=== PATIENT | male | born 1985 | race Two or more races ===

== ENCOUNTER 2017-02-23 20:15 | Inpatient (IN) | payer OTHER ==
[~2017-02-23] VITALS: Ht 162.6 cm; Wt 77.3 kg
[2017-02-23 21:15] LABS: ADD MIUA? YES; BILIRUBIN NEGATIVE; BLOOD LARGE; COLOR YELLOW ((YELLOW)); GLUCOSE (STRIP) NEGATIVE; KETONES NEGATIVE; LEUKOCYTES NEGATIVE; NITRITE NEGATIVE; PROTEIN (STRIP) >=500; SPECIFIC GRAVITY 1.012 (1.000-1.030); UROBILINOGEN 0.2 MG/DL (0.2-1.0)
[2017-02-23 21:19] LABS: HEMATOCRIT 28.9 % (38.0-50.0); MCH 28.2 PG (29.0-34.0); MCHC 33.2 G/DL (30.0-36.0); MEAN PLAT.VOLUME 9.9 uM^3 (9.0-12.4); PLATELET COUNT 112 K/uL (156-360); RBC DIS.WIDTH-CV 14.6 % (11.8-14.6); RBC DIS.WIDTH-SD 45.4 % (39-53); WHITE BLOOD COUNT 7.2 K/uL (4.1-10.2)
[2017-02-23 21:22] LABS: BACTERIA RARE /HPF; EPITHELIAL CELLS RARE /HPF; MUCUS TRACE /LPF; RED BLOOD CELLS 15-20 /HPF (0-5); UCUL ADDED? NO; WHITE BLOOD CELLS 0-5 /HPF (0-5)
[2017-02-23 21:31] LABS: CHLORIDE 107 mEq/L (99-109); POTASSIUM 4.5 mEq/L (3.7-5.4); SODIUM 138 mEq/L (136-147)
[2017-02-23 21:33] LABS: GLUCOSE 102 mg/dL (70-99)
[2017-02-23 21:34] LABS: ANION GAP 20 MEQ/L (2-14)
[2017-02-23 21:37] LABS: GFR ESTIMATE (CALCULATED) 3 mL/min/
[2017-02-23 21:40] LABS: TROP-I INTERPRETATION NEGATIVE; TROPONIN-I 0.25 ng/mL (0.0-0.30)
[2017-02-23 21:54] LABS: UREA NITROGEN (BUN) 137 mg/dL (9-23)
[2017-02-23] MEDS ORDERED: FUROSEMIDE20 MG PO (23:37)
[2017-02-23] MEDS ORDERED: PROAIR HFA8.5 GM IH (23:37)
[2017-02-23] MEDS ORDERED: NIFEDIPINE ER30 MG PO (23:38)
[2017-02-23] MEDS ORDERED: SYMBICORT60 INHALA1 IH (23:40)
[2017-02-24 00:35] VITALS: BP 190/120
[2017-02-24 02:51] LABS: C-REACTIVE PROTEIN 18.4 MG/L (0-10); SAMPLE HEMOLYSIS CHECK 0; SAMPLE ICTERIC CHECK 0; SAMPLE LIPEMIA CHECK 0
[2017-02-24 03:31] LABS: UR CREATININE CONCENTRATION 128.8 MG/DL
[2017-02-24 04:25] VITALS: BP 150/83
[2017-02-24 05:35] LABS: HEMATOCRIT 23.2 % (38.0-50.0); MCH 29.4 PG (29.0-34.0); MCHC 33.6 G/DL (30.0-36.0); MCV 87.5 FL (86-99); MEAN PLAT.VOLUME 11.7 uM^3 (9.0-12.4); PLATELET COUNT 79 K/uL (156-360); RBC DIS.WIDTH-CV 14.6 % (11.8-14.6); RBC DIS.WIDTH-SD 46.8 % (39-53); WHITE BLOOD COUNT 6.2 K/uL (4.1-10.2)
[2017-02-24 05:39] LABS: RED BLOOD COUNT 2.65 M/uL (4.00-5.50)
[2017-02-24 06:23] LABS: ANION GAP 20 MEQ/L (2-14); CHLORIDE 106 MEQ/L (99-109); GFR ESTIMATE (CALCULATED) 3 mL/min/; GLUCOSE 100 mg/dL (70-99); MAGNESIUM 2.7 mg/dl (1.3-2.7); POTASSIUM 4.4 MEQ/L (3.7-5.4); SAMPLE HEMOLYSIS CHECK 0; SAMPLE ICTERIC CHECK 0; SAMPLE LIPEMIA CHECK 0; SODIUM 138 MEQ/L (136-147); UREA NITROGEN (BUN) 122 mg/dL (9-23)
[2017-02-24 07:15] LABS: ERTH.SED.RATE 5 MM/HR (0-15)
[2017-02-24 07:21] VITALS: BP 133/91
[2017-02-24 07:52] LABS: INTACT PARATHYROID HORMONE 611 pg/mL (10-69)
[2017-02-24 11:17] LABS: HIV INDEX 0.11; HIV-1/2 AB/AG COMBO Nonreactive; HPCA INDEX 0.09
[2017-02-24 12:19] LABS: FERRITIN 336 NG/ML (22-322)
[2017-02-24 12:26] LABS: HEMATOCRIT 23.9 % (38.0-50.0); MCV 86.9 FL (86-99)
[2017-02-24 12:55] VITALS: BP 156/92
[2017-02-24 13:19] LABS: C3 COMPLEMENT 153 MG/DL (58-170); C4 COMPLEMENT 42 MG/DL (10-40)
[2017-02-24 13:19] LABS: IRON 63 MCG/DL (35-150)
[2017-02-24 16:30] VITALS: BP 140/78
[2017-02-24 20:48] VITALS: BP 148/85
[2017-02-25 00:19] VITALS: BP 127/65
[2017-02-25 02:43] VITALS: BP 131/78
[2017-02-25 05:03] LABS: MCH 29.4 PG (29.0-34.0); MCHC 33.9 G/DL (30.0-36.0); MCV 86.8 FL (86-99); MEAN PLAT.VOLUME 11.3 uM^3 (9.0-12.4); PLATELET COUNT 96 K/uL (156-360); RBC DIS.WIDTH-CV 14.5 % (11.8-14.6); RBC DIS.WIDTH-SD 46.2 % (39-53); RED BLOOD COUNT 2.65 M/uL (4.00-5.50); WHITE BLOOD COUNT 4.6 K/uL (4.1-10.2)
[2017-02-25 05:14] LABS: INTER. NORMALIZED RATIO 1.1; PROTHROMBIN TIME 12.6 SEC (10.2-12.9)
[2017-02-25 05:16] LABS: PTT 28.9 SEC (25-37)
[2017-02-25 05:40] LABS: GLUCOSE 110 mg/dL (70-99)
[2017-02-25 05:50] LABS: ANION GAP 17 MEQ/L (2-14); CHLORIDE 109 MEQ/L (99-109); GFR ESTIMATE (CALCULATED) 3 mL/min/; POTASSIUM 4.5 MEQ/L (3.7-5.4); SAMPLE HEMOLYSIS CHECK 0; SAMPLE ICTERIC CHECK 0; SAMPLE LIPEMIA CHECK 0; SODIUM 141 MEQ/L (136-147)
[2017-02-25 05:51] LABS: UREA NITROGEN (BUN) 133 mg/dL (9-23)
[2017-02-25 06:24] LABS: POINT-OF-CARE METER ID UU14314088
[2017-02-25 08:14] VITALS: BP 154/88
[2017-02-25 12:00] VITALS: BP 140/78
[2017-02-25 16:00] VITALS: BP 142/82
[2017-02-25 19:39] VITALS: BP 139/82
[2017-02-26 00:26] VITALS: BP 137/79
[2017-02-26 02:57] VITALS: BP 134/77
[2017-02-26 04:40] LABS: HEMATOCRIT 22.8 % (38.0-50.0); MCH 28.7 PG (29.0-34.0); MCHC 33.3 G/DL (30.0-36.0); MEAN PLAT.VOLUME 11.4 uM^3 (9.0-12.4); PLATELET COUNT 108 K/uL (156-360); RBC DIS.WIDTH-CV 14.4 % (11.8-14.6); RBC DIS.WIDTH-SD 45.2 % (39-53); RED BLOOD COUNT 2.65 M/uL (4.00-5.50); WHITE BLOOD COUNT 4.9 K/uL (4.1-10.2)
[2017-02-26 04:52] LABS: CHLORIDE 110 mEq/L (99-109); SODIUM 141 mEq/L (136-147)
[2017-02-26 04:54] LABS: CHLORIDE 111 mEq/L (99-109); GLUCOSE 107 mg/dL (70-99); SODIUM 142 mEq/L (136-147)
[2017-02-26 04:55] LABS: ANION GAP 17 MEQ/L (2-14)
[2017-02-26 04:56] LABS: GLUCOSE 108 mg/dL (70-99)
[2017-02-26 04:57] LABS: ANION GAP 16 MEQ/L (2-14)
[2017-02-26 05:00] LABS: GFR ESTIMATE (CALCULATED) 3 mL/min/
[2017-02-26 05:04] LABS: UREA NITROGEN (BUN) 140 mg/dL (9-23)
[2017-02-26 05:06] LABS: UREA NITROGEN (BUN) 141 mg/dL (9-23)
[2017-02-26 05:11] LABS: GFR ESTIMATE (CALCULATED) 3 mL/min/
[2017-02-26 07:55] VITALS: BP 157/91
[2017-02-26 11:45] VITALS: BP 155/91
[2017-02-27 13:42] LABS: GLOMERULAR BASEMENT MEMB ABY+ <1.0 AI (<1.0)
[2017-02-27 21:44] LABS: Neutrophil Cytoplasmic Aby Negative (Negative)
== END 2017-02-26 14:36 | disposition left against medical advice (07) | DRG 683 ==
LOC: EME 20:15 → EDOF 22:42 → 4EAST 22:42 → ENRESERV 22:48 → 4EAST 23:55
PROVIDERS: Emergency Medicine; Hospitalist; Internal Medicine; Internal Medicine Nephrology
DX: N17.9 Acute kidney failure, unspecified (principal); N18.6 End stage renal disease; I12.0 Hypertensive chronic kidney disease with stage 5 chronic kidney disease or end stage renal disease; E87.70 Fluid overload, unspecified; E87.2 Acidosis; D64.9 Anemia, unspecified; J45.909 Unspecified asthma, uncomplicated; N50.89 Other specified disorders of the male genital organs; R53.1 Weakness
CPT/HCPCS: 74176; 76770; 80048; 80048 91; 80069; 81003; 82043; 82272; 82306; 82330; 82570; 82575; 82728; 82948; 83520 90; 83540; 83735; 83880; 83930; 83935; 83970; 84156; 84300; 84466; 84484; 85014; 85018; 85027; 85610; 85651; 85730; 86021 90; 86063; 86140; 86160; 86235; 86703; 86803; 87086; 89190; 94640; 94640 76; 99281; 99285; J1644; J1940

== ENCOUNTER 2017-04-29 11:28 | Day surgery (SDC) | payer OTHER ==
[~2017-04-29] VITALS: Ht 165.1 cm; Wt 68.0 kg
[~2017-04-29 11:28] MED LIST: FUROSEMIDE20 MG PO; NIFEDIPINE ER30 MG PO; NORMODYNE,TRAN200 MG PO; PROAIR HFA8.5 GM IH; RENVELA800 MG PO; SYMBICORT60 INHALA1 IH
[2017-04-29 12:06] VITALS: BP 137/83
[2017-04-29 12:21] LABS: HEMATOCRIT 30.4 % (38.0-50.0); MCH 28.8 PG (29.0-34.0); MCHC 33.6 G/DL (30.0-36.0); MCV 85.9 FL (86-99); MEAN PLAT.VOLUME 10.3 uM^3 (9.0-12.4); PLATELET COUNT 171 K/uL (156-360); RBC DIS.WIDTH-CV 14.2 % (11.8-14.6); RBC DIS.WIDTH-SD 44.6 % (39-53); RED BLOOD COUNT 3.54 M/uL (4.00-5.50); WHITE BLOOD COUNT 6.1 K/uL (4.1-10.2)
[2017-04-29 12:35] LABS: ANION GAP 14 MEQ/L (2-14); CHLORIDE 99 MEQ/L (99-109); POTASSIUM 4.1 MEQ/L (3.7-5.4); SAMPLE HEMOLYSIS CHECK 0; SAMPLE ICTERIC CHECK 0; SAMPLE LIPEMIA CHECK 0; SODIUM 142 MEQ/L (136-147)
[2017-04-29 12:41] LABS: GFR ESTIMATE (CALCULATED) 8 mL/min/ (58.99-99999); GLUCOSE 85 mg/dL (70-99); UREA NITROGEN (BUN) 64 mg/dL (9-23)
[2017-04-29 13:41] LABS: METH RESISTANT S AUREUS PCR NEGATIVE (NEGATIVE)
[2017-04-29 13:44] LABS: PROBE CHECK PASS; SPECIMEN PROCESSING CONTROL PASS
[2017-04-29 16:00] VITALS: BP 138/87
== END 2017-04-29 17:10 | disposition home or self-care (01) ==
LOC: SDC 11:28
PROVIDERS: Surgery
DX: I12.0 Hypertensive chronic kidney disease with stage 5 chronic kidney disease or end stage renal disease (principal); N18.6 End stage renal disease; Z99.2 Dependence on renal dialysis; J45.909 Unspecified asthma, uncomplicated
CPT/HCPCS: 80048; 85027; 87641; J0690; J1644; J2250; J2720; J3010

== ENCOUNTER 2017-07-23 07:33 | Day surgery (SDC) | payer OTHER ==
[~2017-07-23] VITALS: Ht 165.1 cm; Wt 69.0 kg
== END 2017-07-23 09:40 | disposition home or self-care (01) ==
LOC: CATH 07:33
DX: T82.858A Stenosis of other vascular prosthetic devices, implants and grafts, initial encounter (principal); Y83.2 Surgical operation with anastomosis, bypass or graft as the cause of abnormal reaction of the patient, or of later complication, without mention of misadventure at the time of the procedure; I12.0 Hypertensive chronic kidney disease with stage 5 chronic kidney disease or end stage renal disease; N18.6 End stage renal disease; Z99.2 Dependence on renal dialysis; J45.909 Unspecified asthma, uncomplicated
CPT/HCPCS: 87641; C1725; C1769; C1894; J1644; J2250; J3010

== ENCOUNTER → 2017-09-06 | Outpatient (CLI) | payer OTHER | END | disposition home or self-care (01) | LOC: AMB 12:30 | PROC: 02PYX3Z Removal of Infusion Device from Great Vessel, External Approach (ICD-10-PCS; principal; 2017-09-06) | DX: Z45.2 Encounter for adjustment and management of vascular access device (principal); N19 Unspecified kidney failure; Z99.2 Dependence on renal dialysis ==